=== PATIENT | female | born 1950 | race Caucasian/White ===

== ENCOUNTER 2017-04-18 08:48 | Inpatient (IN) ==
[2017-04-18] MEDS ORDERED: ASPIRIN 325 MG TABLET PO STA (09:31)
[2017-04-18] MEDS ORDERED: SODIUM CHLORIDE 0.9% 500 ML IV STA (09:31)
[2017-04-18 09:40] LABS: Basophils % 0.3 % (0.0-0.8); Hemoglobin 12.9 GM/DL (12.0-16.0); Immature Granulocytes % 0.3 %; Immature Granulocytes Absolute 0.01 #; Lymphocytes # 1.1 10*3/uL (1.4-4.0); Lymphocytes % 29.9 % (21.3-54.2); Mean Corpuscular HGB Conc 34.9 GM/DL (32-36); Mean Corpuscular Hemoglobin 33 PG (27-34); Mean Corpuscular Volume 93.7 FL (87-102); Mean Platelet Volume 9.6 FL (9.6-12.0); Monocytes # 0.3 10*3/uL (0.11-0.8); Monocytes % 7.6 % (1.7-12.7); Neutrophils # 2.2 10*3/uL (1.4-7.4); Neutrophils % 61.9 % (38.7-73.9); Platelet Count 159 T/CUMM (130-400); Red Blood Count 3.95 MC/CUMM (3.8-5.5); Red Cell Distribution Width 12.3 % (9.3-17.3); White Blood Count 3.6 T/CUMM (4-12)
[2017-04-18] MEDS ORDERED: ASPIRIN 325 MG TABLET ONE (09:42)
[2017-04-18 09:44] LABS: PT Patient Result 10.6 SECS; Partial Thromboplastin Time 26.7 SECS (0-40)
--- NOTE | 2017-04-18 09:53 | EKG Report ---
Stationary ECG Study [facility] ER Test Date: 04/18/2017 9:49:44 AM Pat Name: NOY QUILES Department: Room: Gender: F Pollution Control Engineer: : 1950 Requested by: Zen Leung Order Number: [id number] Reading MD: JENNIFER TRAMMELL Intervals [place] Rate: P: 999 ME: 0 QRS: 0 QRSD: 0 T: 0 QT: 0 QTc: 0 Interpretive Statements NORMAL SINUS RHYTHM LOW VOLTAGE POSSiBLE OLD INFERIOR VT Electronically Signed On 04-18-17 17:55:04 CDT by JENNIFER TRAMMELL [email or web address]
[2017-04-18 09:56] LABS: Apearance,Urine CLEAR (Clear); Bacteria,Urine Occasional /HPF (Few); Bilirubin,Urine Negative (Negative); Blood, Urine Negative (Negative); Glucose,Urine (UA) Negative (Negative); Ketones,Urine Negative (Negative); Mucus,Urine Occasional /LPF (Occasional); Nitrite,Urine Negative (Negative); Protein,Urine Negative; Squamous Epithelial Cell,Urine Occasional /HPF (0-10); Urine Color Colorless (Yellow); Urine Specific Gravity 1.001 (1.001-1.035); Urine Urobilinogen < 2.0 EU/DL (0.2-1.0); WBC,Urine 2 /HPF (0-6)
[2017-04-18 10:04] LABS: Barbiturates Screen,Urine Negative (Negative); Benzodiazepines Screen,Urine Negative (Negative); Cannabinoid Screen,Urine Negative (Negative); Opiate Screen,Urine Negative (Negative); Phencyclidine Screen,Urine Negative (Negative)
--- NOTE | 2017-04-18 10:07 | CT Report ---
CT head/brain wo con Indication: Hemiparesis Comparison: None Technique: Multiple axial tomographic images of the brain were obtained without the use of intravenous contrast. Findings: Midline structures are nondisplaced. Mild global volume loss present. Mild periventricular and subcortical hypoattenuation noted which is nonspecific but consistent with chronic microvascular ischemic change. Demyelinating process and vasculitis less likely considerations. There is no evidence of acute intracranial hemorrhage or hydrocephalus. The visualized paranasal sinuses and bilateral mastoid air cells are essentially clear. IMPRESSION: No acute intracranial abnormality demonstrated. The CT exam was performed using one or more of the following dose reduction techniques: Automated exposure control, adjustment of the mA and/or kV according to patient size, or use of iterative reconstruction technique. PROCEDURE INTERPRETED AT [facility] DEPARTMENT OF RADIOLOGY Final Report Signed by: Dr Yaakov Lyon
--- NOTE | 2017-04-18 10:07 | Emergency Department Note ---
Peri Dowling Rolonda, am scribing for, and in the presence of, Zen Barrientos MD 09:50. Floyd Dowling Charles R, MD, personally performed the services described in this documentation, ascribed by Jatinder Whitt in my presence, and it is both accurate and complete . Arrival - Arrival Chief Complaint: Neuro Stated Complaint: Confusion ED Nursing Triage Note: Difficulty concentrating and slurred speech when she woke up this am that has resolved - pt is awake and alert at time of triage - EMS states that her slurred speech was resolved upon their arrival - pt states that she has been under alot of family stress Mode of Arrival: Stretcher - History of Present Illness HPI Narrative: Pt is a 67 y/o female who was brought to the ED via EMS for further evaluation of AMS with an onset of this morning. Pt states that she could not "get her words out" but at time of triage nurses reported pt was awake and alert. states that EMS called him this morning stating that pt had slurred speech and confusion but once he arrived to ED she was fine, stated that sxs lasted 00:30 minutes. Pt stated that she fell last week but denies hitting her head. Pt states that her head "feels heavy" and that she is under a alot of stress due to family issues. She denies weakness, Hx of TIA, dizziness and chest pain but confirms taking ASA everyday. No other complaint/pain in ED. Onset (ago): hour(s) Consistency: constant Severity: moderate Severity scale (1-10): 4 Date of Last Menstrual Period: shawn Allergies/Adverse Reactions: Allergies Allergy/AdvReac Type Severity Reaction Status Date / Time Sulfa (Sulfonamide Allergy RASH Verified 04/18/17 08:52 Antibiotics) Medical,Surgical,& Family Hx - Medical History Psychological: History of: Depression Endocrine: History of: Dyslipidemia - Social History Smoking Status: Never smoker Frequency of Alcohol Use: None Type of Drug Use: None Exam Vital Signs: Vital Signs Temperature 98.9 F 04/18/17 09:00 Pulse Rate 86 04/18/17 09:00 Respiratory Rate 20 04/18/17 09:00 Blood Pressure 109/73 04/18/17 09:00 O2 Sat by Pulse Oximetry 95 04/18/17 09:00 - General General appearance: alert, in no apparent distress - Head Head exam: Present: atraumatic, normocephalic - Eye Eye exam: Present: normal appearance, PERRL, EOMI - ENT ENT exam: Present: mucous membranes moist. Absent: mucous membranes dry - Neck Neck exam: Present: full ROM. Absent: tenderness - Chest Chest inspection: Present: symmetric chest wall rise. Absent: tenderness - Respiratory Respiratory exam: Present: normal lung sounds bilaterally. Absent: rales - Cardiovascular Cardiovascular exam: Present: murmur (3/6 sub ) - Abdominal Exam Abdominal exam: Present: soft, normal bowel sounds. Absent: tenderness - Extremities Exam Extremities exam: Present: full ROM. Absent: tenderness - Back Exam Back exam: Present: full ROM. Absent: tenderness - Neurological Exam Neurological exam: Present: alert, oriented X3, CN II-XII intact - Psychiatric Psychiatric exam: Present: normal affect, normal mood - Skin Skin exam: Present: warm, dry, intact, normal color. Absent: rash Course - Reevaluation(s) Reevaluation #1: Patient is back to her baseline mental status no neurological deficits patient no acute distress Time: : - Consultations Consultation #1: Hospitalist will admit patient Time: 10:27 Results - Labs CBC & BMP: 04/18/17 09:01 04/18/17 09:01 Lab Results: I have reviewed the patients labs Labs: Laboratory Tests 04/18/17 04/18/17 04/18/17 09:01 09:01 09:05 WBC 3.6 L RBC 3.95 Hgb 12.9 Hct 37.0 Plt Count 159 Lymph # (Auto) 1.1 L INR 1.0 PT Patient/Control Mix 10.6 Circ Anticoag PTT 26.7 Urine pH 7.0 Ur Specific Sanders 1.001 Urine Protein Negative Urine Glucose (UA) Negative Urine Ketones Negative Urine Blood Negative Urine Nitrate Negative Urine Bilirubin Negative Urine Urobilinogen < 2.0 H Urine Leukocytes Trace Urine WBC 2 Ur Squamous Epith Cells Occasional Urine Bacteria Occasional Urine Mucus Occasional Ur Culture Indicated? Not indicated Laboratory Tests 04/18/17 09:01 Sodium 143 Potassium 4.1 Chloride 110 H Carbon Dioxide 27 BUN 20 H GFR Calculation 65 BUN/Creatinine Ratio 22.00 H Serum Alcohol < 15 L Disposition Clinical Impression: Transient cerebral ischemia, Expressive aphasia, Confusion, Altered mental status Case discussed with: patient, patient's family Disposition: Still a Patient Condition: Stable Time of Disposition: 10:27 NIH Stroke Score - Stroke Score Initial Assessment Level of Consciousness: Alert Level of Consciousness Questions: Answers Both Correctly Level of Consciousness Commands: Obeys Both Correctly Best Gaze: Normal Visual Longoria: No Visual Loss Facial Palsy: Normal Motor - Right Arm: No Drift Motor - Left Arm: No Drift Motor - Right Leg: No Drift Motor - Left Leg: No Drift Limb Ataxia: Absent Sensory (Pin Prick): Normal Best Language: Normal Dysarthria: Normal Extinction / Inattention (Neglect): No Neglect NIH Stroke Score: 0
[2017-04-18 10:08] LABS: Alanine Aminotransferase 25 U/L (13-56); Alkaline Phosphatase 75 U/L (45-117); Aspartate Amino Transferase 21 U/L (0-37); Blood Urea Nitrogen 20 MG/DL (7-18); Calcium 8.6 MG/DL (8.5-10.1); Glucose 78 MG/DL (74-106); Potassium 4.1 MMOL/L (3.5-5.1); Sodium 143 MMOL/L (136-145); Total Protein 7.1 G/DL (6.4-8.3)
--- NOTE | 2017-04-18 10:26 | XRay Report ---
Exam: XR chest 1V portable Date: 04/18/2017 9:32 AM Indication: Cardiomegaly Comparison: None Technical: AP Findings: ASVD is present. Heart is normal in size. No obvious infiltrate or effusion. Mediastinum and bony structures are otherwise intact. External cardiac leads are present. Impression: 1. ASVD without acute cardiopulmonary pathology PROCEDURE INTERPRETED AT [facility] DEPARTMENT OF RADIOLOGY Final Report Signed by: Dr. Reggie Sweet
[2017-04-18] MEDS ORDERED: ACETAMINOPHEN 325 MG TABLET PO PRN (11:03)
[2017-04-18] MEDS ORDERED: guaiFENesin/DM ER 600-30 MG TABLET PO PRN (11:03)
[2017-04-18] MEDS ORDERED: diphenhydrAMINE CAP 25 MG CAPSULE PO PRN (11:03)
[2017-04-18] MEDS ORDERED: BISACODYL 5 MG TABLET PO PRN (11:03)
[2017-04-18] MEDS ORDERED: SODIUM CHLORIDE 0.9% 1,000 ML IV SCH (11:30)
[2017-04-18] MEDS ORDERED: ENOXAPARIN 40 MG/0.4 ML SYRINGE SUBCUT SCH (11:30)
--- NOTE | 2017-04-18 11:34 | Hospitalist History & Physical ---
Assessment and Plan - Time spent with patient Time spent with patient: Greater than 30 minutes (1) Expressive aphasia Status: Acute Assessment and plan: 04/18/17 - patient presented to the ER with slurred speech and unability to get her words out. She is speaking more clearly at time of evaluation; slight left side facial droop noted. Will admit, get labs, cbc, cmp, lipids, echo, carotids , A1c, MRI, MRA, place on Plavix, lovenox, swallow evaluation. Consult Dr Agosto. Current Visit: Yes (2) Transient cerebral ischemia Status: Acute Current Visit: Yes History of Present Illness Chief complaint: slurred speech and weakness History of present illness: Ms. Perry is a 67 year old white female very pleasant in the ED presents for slurred speech starting about 07:30 this morning without any other deficits that she noticed. Medical history of cholesterol and depression. Patient reports the onset at 07:30 this morning prior to arrival. Pertinent positives: left side facial droop slightly and slurred speech; Pertinent negatives: denies weakness; syncope; fever, chills, vision changes, nausea or vomiting. Surgical HX: , tubal ligation, cholecystectomy. At time of ED presentation, patient assessed. LABS: WBC 3.6; H&H 12.9 & 37.0; Platelet 159; Inr 1.0 PT 10.6 PTT 26.7; NA 143; K 4.1; Chloride 110; Carbon dioxide 27; Anion gap 10.1; BUN 20; Creatinine 0.90; glucose 78; Ca 8.6 AST 21; ALT 25; Troponin <0.015; Urine negative; Drug screen Negative. Chest xray - ASVD without acute cardiopulmonary pathology CT head - no acute intracranial abnormality demonstrated. After discussion wiht Dr Barrientos ED physician and Dr Vizcarra agreed to admit patient for further evaluation. Patient is a FULL Code. Allergies Allergy/AdvReac Type Severity Reaction Status Date / Time Sulfa (Sulfonamide Allergy RASH Verified 04/18/17 08:52 Antibiotics) Medical,Surgical,& Family Hx - Medical History Psychological: History of: Depression Endocrine: History of: Dyslipidemia - Surgical History Abdominal Surgeries: Surgical HX of: Cholecystectomy Reproductive Surgeries: Surgical HX of;: Section, Tubal Ligation - Family History Family History: Reports;: Family Hypertension (Father) - Social History Smoking Status: Never smoker Frequency of Alcohol Use: None Type of Drug Use: None Marital Status: Functional capacity: independent ambulation Review of systems: ROS completed and positives and negatives in HPI. Exam - Constitutional Vitals: Period Temp Pulse Resp BP Sys/Mejia Pulse Ox Last 24 Hr 98.9 F-98.9 F 85-86 20-20 109-124/71-73 95-96 General appearance: normal weight - Head Head exam: Present: normal inspection (slight facial droop to left side; speech is clear and answers questions appropriately) - Eye Eye exam: Present: EOMI - Neck Neck exam: Present: normal inspection - Respiratory Respiratory exam: Present: clear to auscultation bilaterally - Cardiovascular Cardiovascular exam: Present: regular rate and rhythm - GI/Abdominal GI/Abdominal exam: Present: normal bowel sounds. Absent: guarding, tenderness, rebound - Extremities Exam Extremities exam: Present: full ROM. Absent: edema - Neurological Exam Neurological exam: Present: alert, oriented X3, CN II-XII intact - Psychiatric Psychiatric exam: Present: normal affect, other (history of depression) - Skin Skin exam: Present: normal color, warm, dry Results - Labs CBC & BMP: 04/18/17 09:01 04/18/17 09:01 Lab Results: I have reviewed the past 24 hour labs Labs: urine - negative - EKG EKG results: interpreted by ERMD - Diagnostic Findings Procedure: Chest x-ray: report reviewed by me, pending (ASVD without acute cardiopulmonary pathology), CT: report reviewed by me (No acute intracranial abnormality demonstrated)
--- NOTE | 2017-04-18 11:50 | Ultrasound Report ---
Exam: US carotid duplex BI Date: 04/18/2017 11:09 AM Indication: TIA Findings: Grayscale color flow analysis and spectral analysis imaging was performed with image stored and captured. Right Flow velocities centimeters per second Common carotid artery: 56 Proximal ICA: 38 Distal ICA: 52 External carotid artery: 58 Vertebral artery: 26 ICA/CCA ratio: 0.9 Measurements in millimeters Distal ICA: 4.7 Left: Flow velocities centimeters per second Common carotid artery: 68 Proximal ICA: 50 Distal ICA: 54 External carotid artery: 53 Vertebral artery: 35 ICA/CCA ratio: 0.8 Measurements in millimeters Distal ICA: 4.6 Minimal atherosclerotic plaque without high-grade stenosis or occlusions or spectral broadening present. Normal color flow Impression: 1. 0-15% stenosis bilaterally Today studies were performed utilizing indirect NASCET criteria The ultrasound images were stored and captured PROCEDURE INTERPRETED AT [facility] DEPARTMENT OF RADIOLOGY Final Report Signed by: Dr. Reggie Sweet
[2017-04-18 11:53] LABS: Risk Ratio 2.97; VLDL CHOLESTEROL 36.8 MG/DL
--- NOTE | 2017-04-18 14:48 | ECHO Report ---
Aliyah Perry Exam Date: 04/18/2017 12:35 Referring Physician: Technologist: Lizbet Cortes Age: 67 Ht (in): 63 Wt (lb): 150 Gender: F Exam Location: [facility] Echo Indications: TIA BP: 130 / 74 HR: 80 Rhythm: Sinus Technical Quality: IMPRESSIONS EF 60 %. Grade I/IV diastolic dysfunction (abnormal relaxation filling pattern), normal to mildly elevated filling pressures. Normal right ventricular size. The right atrium is mildly enlarged. The left atrium is mildly enlarged. Mild mitral valve sclerosis. Trace mitral valve regurgitation. Aortic valve sclerosis. No aortic valve regurgitation. Morphologically normal tricuspid valve. PAP40 mmHg. Trace pulmonary valve regurgitation. No pericardial effusion. Normal size aortic root and proximal ascending aorta. No LV or LA clot seen. MEASUREMENTS (Male / Female) Normal Values 2D ECHO LV Diastolic Diameter PLAX 3.7 cm 4.2 - 5.9 / 3.9 - 5.3 cm LV Systolic Diameter PLAX 2.4 cm LV Fractional Shortening PLAX 36.0 % IVS Diastolic Thickness 1.2 cm 0.6 - 1.0 / 0.6 - 0.9 cm LVPW Diastolic Thickness 1.0 cm 0.6 - 1.0 / 0.6 - 0.9 cm RV Internal Dim ED PLAX 2.5 cm Aortic Root Diameter 2.8 cm LA Systolic Diameter LX 3.6 cm 3.0 - 4.0 / 2.7 - 3.8 cm FINDINGS Left Ventricle EF 60 %. Grade I/IV diastolic dysfunction (abnormal relaxation filling pattern), normal to mildly elevated filling pressures. Right Ventricle Normal right ventricular size. Right Atrium The right atrium is mildly enlarged. Left Atrium The left atrium is mildly enlarged. Mitral Valve Mild mitral valve sclerosis. Trace mitral valve regurgitation. Aortic Valve Aortic valve sclerosis. No aortic valve regurgitation. Tricuspid Valve Mild tricuspid valve regurgitation. Morphologically normal tricuspid valve.PAP40 mmHg. Pulmonic Valve Morphologically normal pulmonic valve. Trace pulmonary valve regurgitation. Pericardium No pericardial effusion. Aorta Normal size aortic root and proximal ascending aorta. Shon Wood (Electronically Signed) Final Date: 18 April 2017 14:47
--- NOTE | 2017-04-18 15:24 | Neurology Consult Note ---
History of Present Illness History of present illness: 57 years old right-handed white lady with past medical history significant for borderline hypertension presented today for the evaluation of slurred speech episode which occurred this morning lasted for few minutes. Patient reported that she knew what she wanted to say but just could not get the words out correctly as well as she was sliding badly. No vision difficulties, swallowing problems, weakness numbness tingling. She was able to get up and walk. No confusion reported either. Never had similar symptoms before. CT of the head is negative. Carotid ultrasound is unremarkable. Lipid profile is borderline abnormal. Patient was taking aspirin at home Home Medications Medication Instructions Recorded Confirmed Type Aspirin 81 mg PO DAILY 04/18/17 04/18/17 History Biotin 1 mg PO DAILY 04/18/17 04/18/17 History Pravastatin [Pravachol] 20 mg PO BEDTIME 04/18/17 04/18/17 History Venlafaxine HCl [Venlafaxine HCl 75 mg PO DAILY 04/18/17 04/18/17 History ER] Allergies Allergy/AdvReac Type Severity Reaction Status Date / Time Sulfa (Sulfonamide Allergy RASH Verified 04/18/17 08:52 Antibiotics) 12 point system: reviewed and no additional remarkable complaints except as stated Medical,Surgical,& Family Hx - Medical History Psychological: History of: Depression Endocrine: History of: Dyslipidemia - Surgical History Abdominal Surgeries: Surgical HX of: Cholecystectomy Reproductive Surgeries: Surgical HX of;: Section, Tubal Ligation - Family History Family History: Reports;: Family Hypertension (Father, brother,and sister), Family Stroke (father) - Social History Smoking Status: Never smoker Frequency of Alcohol Use: None Type of Drug Use: None Exam - Constitutional Vitals: Period Temp Pulse Resp BP Sys/Mejia Pulse Ox Last 24 Hr 97.6 F-98.9 F 76-87 20-20 109-134/71-86 95-100 Exam: GENERAL: Patient is in no acute distress. NECK: Neck is supple. There is no JVD. No carotid bruits present. No thyroid masses. CVS: First and second heart sounds are normal. There is no S3 present. Regular rate and rhythm. RESPIRATORY: Lungs are clear to auscultation without any rales or rhonchi. ABDOMEN: Soft and non-tender. Bowel sounds are present. There is no hepatosplenomegaly. EXT: There is no palpable edema. Peripheral pulses are present. Skin: No rashes Central Nervous system: General: Alert, awake and Oriented x 3 Speech: Fluent Comprehension: Intact and normal Facial expressions: Normal Cranial Nerves: CN1/Olfactory: Normal CN II/ Optic: Normal, Visual Longoria unreliable CN III, and : MYCHAL & EOMI CN V: Normal & intact CN VII: face is symmetric CNVIII: Normal CN XI/X/XI/XII: Intact and Normal Motor: Bulk and Tone is normal. Strength in the right 5/5 Strength in the left 5/5 Sensory: Grossly intact for all the modalities of PP, LT and temp sense Reflexes: 1+ and symmetrical Cerebellar function: Normal finger to nose and heel to redd testing. Toes: Equivocal Gait: Normal heel to heel and toe to toe and tandem walk. Results - Labs CBC & BMP: 04/18/17 09:01 04/18/17 09:01 Assessment and Plan (1) Transient cerebral ischemia Status: Acute Assessment and plan: Agree with Plavix daily. Stop aspirin. Echocardiogram and MRI brain Holter monitor Thank you for the consult Current Visit: Yes
[2017-04-18] MEDS ORDERED: LORazepam 1 MG TABLET PO ONE (15:46)
[2017-04-18] MEDS: CLOPIDOGREL 75 MG TABLET PO SCH (15:53)
--- NOTE | 2017-04-18 16:55 | Magnetic Resonance Report ---
Exam: MR head/brain wo con Date: 04/18/2017 11:09 AM Comparison: CT brain 04/18/2017 Indication: Slurred speech, confusion, alteration of consciousness, TIA Technique:[Multiple acquisitions were obtained including sagittal T1, coronal T2, and axial ADC, diffusion, FLAIR, T2, GRE, and T1 scans without contrast only. Scans were obtained on a 1.5 [place] magnet.] Findings: The ventricles are normal in size with no midline displacement. The pituitary has a normal appearance and the cerebellar tonsils are normal in their location. No acute infarction is identified on the diffusion scans. No evidence of hemorrhage, mass, or extracerebral collection. Cerebral atrophy with FLAIR/T2 hyperintensities. No acute findings in the paranasal sinuses, orbits, temporal bones, or coquille of Sood. Enlarged perivascular spaces are noted which represent a normal variant. Impression: No acute infarction or mass. Cerebral atrophy and microvascular disease. T2 hyperintensities can also be associated with demyelinating disease, vasculitis, migraines, viral illness, etc. PROCEDURE INTERPRETED AT [facility] DEPARTMENT OF RADIOLOGY Final Report Signed by: Dr. Alicia Knapp
[2017-04-18] MEDS ORDERED: ATORVASTATIN 10 MG TABLET PO SCH (21:00)
[2017-04-19 05:34] LABS: Basophils % 0.3 % (0.0-0.8); Hematocrit 33.8 VOL% (35.7-47.0); Hemoglobin 11.8 GM/DL (12.0-16.0); Lymphocytes # 1.6 10*3/uL (1.4-4.0); Lymphocytes % 49.8 % (21.3-54.2); Mean Corpuscular HGB Conc 34.9 GM/DL (32-36); Mean Corpuscular Hemoglobin 33 PG (27-34); Mean Corpuscular Volume 94.7 FL (87-102); Mean Platelet Volume 10.1 FL (9.6-12.0); Monocytes # 0.3 10*3/uL (0.11-0.8); Monocytes % 8.9 % (1.7-12.7); Neutrophils # 1.3 10*3/uL (1.4-7.4); Platelet Count 168 T/CUMM (130-400); Red Blood Count 3.57 MC/CUMM (3.8-5.5); Red Cell Distribution Width 12.3 % (9.3-17.3); White Blood Count 3.2 T/CUMM (4-12)
[2017-04-19 05:57] LABS: Hypochromasia 1+; Platelet Estimate Normal
[2017-04-19 06:03] LABS: Albumin 3.4 G/DL (3.4-5.0); Bilirubin,Total 0.5 MG/DL (0.2-1.0); Calcium 7.7 MG/DL (8.5-10.1); Osmolality,Calculated 287.7 MOS/KG (273-304); Potassium 4.1 MMOL/L (3.5-5.1); Total Protein 6.2 G/DL (6.4-8.3)
[2017-04-19 06:35] LABS: Risk Ratio 3.22; VLDL CHOLESTEROL 34.6 MG/DL
--- NOTE | 2017-04-19 07:37 | EKG Report ---
Stationary ECG Study [facility] Test Date: 04/19/2017 7:37:13 AM Pat Name: NOY QUILES Department: Room: 424 Gender: F Cs Associate: ZEV : 1950 Requested by: Lila Perera Order Number: [id number] Reading MD: CARLY PELAYO Intervals [place] Rate: 73 P: 45 [place]: 162 QRS: -21 QRSD: 85 T: 62 QT: 402 QTc: 428 Interpretive Statements SINUS RHYTHM LEFT AXIS DEVIATION LOW QRS VOLTAGE IN PRECORDIAL LEADS Electronically Signed On 04-19-17 15:54:26 CDT by CARLY PELAYO [email or web address]
--- NOTE | 2017-04-19 08:32 | Discharge Summary ---
Hospital Course - Hospital Course Hospital Course: Mrs Perry presented with TIA. Her symptoms of slurred speech and left face droop resolved. Her daughter agreed that she was back to her baseline. Her MRI brain and carotid US were normal. Her cardiac echo showed EF of 60% adn grade 1 diastolic dysfunction without clot or other source of emboli. Dr Agosto has seen her. She had a TIA. Her asa was stopped and she was started on Plavix. She will continue pravastatin. She will see Dr Agosto in 4 weeks, and also see Dr Vila her PCP. - Time spent with patient Time with patient DS: Greater than 30 minutes (36 minutes were spent in exam, discharge planning, medicine reconciliation, discharge planning.) Diagnosis - Discharge Diagnosis (1) Transient cerebral ischemia Status: Resolved (2) Hypercholesteremia Status: Chronic Specialty Discharge - Follow Up or Referrals Follow up with: Kenneth Agosto MD [Physician] - 05/17/17 11:00 am Cesar Vila DO [Physician] - 1 Week Discharge Plan - Discharge Data Disposition: Disch To Home/Self Care Condition at Discharge: Stable Discharge Diet: heart healthy Activity: resume usual activities as tolerated - Discharge Medications New Clopidogrel [Plavix] 75 mg PO DAILY #30 tablet Continue Pravastatin [Pravachol] 20 mg PO BEDTIME Biotin 1 mg PO DAILY Venlafaxine HCl [Venlafaxine HCl ER] 75 mg PO DAILY Discontinued Aspirin 81 mg PO DAILY - Follow Up or Referral Follow Up: Kenneth Agosto MD [Physician] - 05/17/17 11:00 am Cesar Vila DO [Physician] - 1 Week - Forms/Instructions Instructions: Transient Ischemic Attack (GEN) Exam - Constitutional Vitals: Period Temp Pulse Resp BP Sys/Mejia Pulse Ox Last 24 Hr 97.0 F-99 F 73-87 18-20 103-140/57-86 94-100 General appearance: normal weight, no acute distress - Head Head exam: Present: normocephalic, atraumatic - Eye Eye exam: Present: EOMI. Absent: scleral icterus - Respiratory Respiratory exam: Present: clear to auscultation bilaterally - Cardiovascular Cardiovascular exam: Present: regular rate and rhythm - GI/Abdominal GI/Abdominal exam: Present: normal bowel sounds, soft. Absent: tenderness - Extremities Exam Extremities exam: Absent: edema Discharge Results Procedures and tests throughout hospitalization: Pending Orders 04/18/17 09:05 Blood Culture Stat Labs on day of discharge: Labs from last 24 hours 04/19/17 04/19/17 04/19/17 04:22 04:22 04:22 WBC 3.2 L RBC 3.57 L Hgb 11.8 L Hct 33.8 L MCV 94.7 MCH 33 MCHC 34.9 RDW 12.3 Plt Count 168 MPV 10.1 Neut % (Auto) 41.0 Lymph % (Auto) 49.8 Dale % (Auto) 8.9 Eos % (Auto) 0.0 Baso % (Auto) 0.3 Neut # (Auto) 1.3 L Lymph # (Auto) 1.6 Dale # (Auto) 0.3 Eos # (Auto) 0.0 Baso # (Auto) 0.0 Immature Gran % 0.0 Nucleated RBC % 0.0 Immature Gran # 0.00 Nucleated RBCs # 0.00 Platelet Estimate Normal Hypochromasia 1+ Morphology Comment INR PT Patient/Control Mix Circ Anticoag PTT Sodium 145 Potassium 4.1 Chloride 113 H Carbon Dioxide 25 Anion Gap 11.1 BUN 16 Creatinine 0.70 GFR Calculation 89 BUN/Creatinine Ratio 22.00 H Glucose 79 Hemoglobin A1c Calculated Osmolality 287.7 Calcium 7.7 L Total Bilirubin 0.50 AST 19 ALT 21 Alkaline Phosphatase 59 Troponin I Total Protein 6.2 L Albumin 3.4 Globulin 2.8 Albumin/Globulin Ratio 1.2 Triglycerides 173 H Cholesterol 174 LDL Cholesterol 90.0 VLDL Cholesterol 34.6 HDL Cholesterol 54 Heart Disease Risk Ratio 3.22 Urine Color Urine Appearance Urine pH Ur Specific [place] Urine Protein Urine Glucose (UA) Urine Ketones Urine Blood Urine Nitrate Urine Bilirubin Urine Urobilinogen Urine Leukocytes Urine WBC Ur Squamous Epith Cells Urine Bacteria Urine Mucus Ur Culture Indicated? Urine Opiates Screen Ur Barbiturates Screen Ur Phencyclidine Scrn U Amphetamine/Methamph U Benzodiazepines Scrn U Cocaine Metab Screen U Cannabinoids Screen Serum Alcohol 04/18/17 04/18/17 04/18/17 Unknown 09:05 09:05 WBC RBC Hgb Hct MCV MCH MCHC RDW Plt Count MPV Neut % (Auto) Lymph % (Auto) Dale % (Auto) Eos % (Auto) Baso % (Auto) Neut # (Auto) Lymph # (Auto) Dale # (Auto) Eos # (Auto) Baso # (Auto) Immature Gran % Nucleated RBC % Immature Gran # Nucleated RBCs # Platelet Estimate Hypochromasia Morphology Comment INR PT Patient/Control Mix Circ Anticoag PTT Sodium Potassium Chloride Carbon Dioxide Anion Gap BUN Creatinine GFR Calculation BUN/Creatinine Ratio Glucose Hemoglobin A1c Calculated Osmolality Calcium Total Bilirubin AST ALT Alkaline Phosphatase Troponin I Total Protein Albumin Globulin Albumin/Globulin Ratio Triglycerides 184 H Cholesterol 202 H LDL Cholesterol 102.0 VLDL Cholesterol 36.8 HDL Cholesterol 68 H Heart Disease Risk Ratio 2.97 Urine Color Colorless Urine Appearance Clear Urine pH 7.0 Ur Specific [place] 1.001 Urine Protein Negative Urine Glucose (UA) Negative Urine Ketones Negative Urine Blood Negative Urine Nitrate Negative Urine Bilirubin Negative Urine Urobilinogen < 2.0 H Urine Leukocytes Trace Urine WBC 2 Ur Squamous Epith Cells Occasional Urine Bacteria Occasional Urine Mucus Occasional Ur Culture Indicated? Not indicated Urine Opiates Screen Negative Ur Barbiturates Screen Negative Ur Phencyclidine Scrn Negative U Amphetamine/Methamph Negative U Benzodiazepines Scrn Negative U Cocaine Metab Screen Negative U Cannabinoids Screen Negative Serum Alcohol 04/18/17 04/18/17 04/18/17 09:01 09:01 09:01 WBC RBC Hgb Hct MCV MCH MCHC RDW Plt Count MPV Neut % (Auto) Lymph % (Auto) Dale % (Auto) Eos % (Auto) Baso % (Auto) Neut # (Auto) Lymph # (Auto) Dale # (Auto) Eos # (Auto) Baso # (Auto) Immature Gran % Nucleated RBC % Immature Gran # Nucleated RBCs # Platelet Estimate Hypochromasia Morphology Comment INR PT Patient/Control Mix Circ Anticoag PTT Sodium 143 Potassium 4.1 Chloride 110 H Carbon Dioxide 27 Anion Gap 10.1 BUN 20 H Creatinine 0.90 GFR Calculation 65 BUN/Creatinine Ratio 22.00 H Glucose 78 Hemoglobin A1c 5.8 Calculated Osmolality 286.0 Calcium 8.6 Total Bilirubin 0.40 AST 21 ALT 25 Alkaline Phosphatase 75 Troponin I < 0.015 Total Protein 7.1 Albumin 4.0 Globulin 3.1 Albumin/Globulin Ratio 1.2 Triglycerides Cholesterol LDL Cholesterol VLDL Cholesterol HDL Cholesterol Heart Disease Risk Ratio Urine Color Urine Appearance Urine pH Ur Specific [place] Urine Protein Urine Glucose (UA) Urine Ketones Urine Blood Urine Nitrate Urine Bilirubin Urine Urobilinogen Urine Leukocytes Urine WBC Ur Squamous Epith Cells Urine Bacteria Urine Mucus Ur Culture Indicated? Urine Opiates Screen Ur Barbiturates Screen Ur Phencyclidine Scrn U Amphetamine/Methamph U Benzodiazepines Scrn U Cocaine Metab Screen U Cannabinoids Screen Serum Alcohol < 15 L 04/18/17 04/18/17 09:01 09:01 WBC 3.6 L RBC 3.95 Hgb 12.9 Hct 37.0 MCV 93.7 MCH 33 MCHC 34.9 RDW 12.3 Plt Count 159 MPV 9.6 Neut % (Auto) 61.9 Lymph % (Auto) 29.9 Dale % (Auto) 7.6 Eos % (Auto) 0.0 Baso % (Auto) 0.3 Neut # (Auto) 2.2 Lymph # (Auto) 1.1 L [place] # (Auto) 0.3 Eos # (Auto) 0.0 Baso # (Auto) 0.0 Immature Gran % 0.3 Nucleated RBC % 0.0 Immature Gran # 0.01 Nucleated RBCs # 0.00 Platelet Estimate Hypochromasia Morphology Comment INR 1.0 PT Patient/Control Mix 10.6 Circ Anticoag PTT 26.7 Sodium Potassium Chloride Carbon Dioxide Anion Gap BUN Creatinine GFR Calculation BUN/Creatinine Ratio Glucose Hemoglobin A1c Calculated Osmolality Calcium Total Bilirubin AST ALT Alkaline Phosphatase Troponin I Total Protein Albumin Globulin Albumin/Globulin Ratio Triglycerides Cholesterol LDL Cholesterol VLDL Cholesterol HDL Cholesterol Heart Disease Risk Ratio Urine Color Urine Appearance Urine pH Ur Specific [place] Urine Protein Urine Glucose (UA) Urine Ketones Urine Blood Urine Nitrate Urine Bilirubin Urine Urobilinogen Urine Leukocytes Urine WBC Ur Squamous Epith Cells Urine Bacteria Urine Mucus Ur Culture Indicated? Urine Opiates Screen Ur Barbiturates Screen Ur Phencyclidine Scrn U Amphetamine/Methamph U Benzodiazepines Scrn U Cocaine Metab Screen U Cannabinoids Screen Serum Alcohol DS: Provider Date of admission: 04/18/17 10:36 Primary care physician: . No PCP Attending physician on admission: Stephy Vizcarra MD Consults: 04/18/17 12:07 Consult to Physician [CONS] Routine Comment: Consulting Provider: Kenneth Agosto Consulting Provider Notified: Yes When should Consulting Provider be notified: Now Consult to Specialist Group: Neurology When should Consulting Provider be notified: Now Person Notified: JAIRO Date Notified: 04/18/17 Time Notified: 13:09 Discharging clinician: Stephy Vizcarra MD
--- NOTE | 2017-04-19 08:44 | Neurology Progress Note ---
Neurology - PN : Subjective Interval history: Patient seems to be doing okay. No new problems reported. Feeling better. MRI of the brain and carotid ultrasound are all within normal limits Exam (Progress Note) - Constitutional Vitals: Period Temp Pulse Resp BP Sys/Mejia Pulse Ox Last 24 Hr 97.0 F-99 F 73-87 18-20 103-140/57-86 94-100 Exam: GENERAL: Patient is in no acute distress. NECK: Neck is supple. There is no JVD. No carotid bruits present. No thyroid masses. CVS: First and second heart sounds are normal. There is no S3 present. Regular rate and rhythm. RESPIRATORY: Lungs are clear to auscultation without any rales or rhonchi. ABDOMEN: Soft and non-tender. Bowel sounds are present. There is no hepatosplenomegaly. EXT: There is no palpable edema. Peripheral pulses are present. Skin: No rashes Central Nervous system: General: Alert, awake and Oriented x 3 Speech: Fluent Comprehension: Intact and normal Facial expressions: Normal Cranial Nerves: CN1/Olfactory: Normal CN II/ Optic: Normal, Visual [place] unreliable CN III, and : MYCHAL & EOMI CN V: Normal & intact CN VII: face is symmetric CNVIII: Normal CN XI/X/XI/XII: Intact and Normal Motor: Bulk and Tone is normal. Strength in the right 5/5 Strength in the left 5/5 Sensory: Grossly intact for all the modalities of PP, LT and temp sense Reflexes: 1+ and symmetrical Cerebellar function: Normal finger to nose and heel to redd testing. Toes: Equivocal Gait: Normal heel to heel and toe to toe and tandem walk. Results - Labs CBC & BMP: 04/19/17 04:22 04/19/17 04:22 Assessment and Plan (1) Transient cerebral ischemia Status: Acute Assessment and plan: Continue Plavix and Lipitor. No further intervention. Okay to go home from neuro standpoint Follow-up in 4 weeks Current Visit: Yes Specialty Discharge - Follow Up or Referrals Follow up with: Kenneth Agosto MD [Physician] - 1 Month Cesar Vila DO [Physician] - 1 Week
[2017-04-19] MEDS ORDERED: ASPIRIN EC 325 MG TABLET PO SCH (09:00)
[2017-04-19] MEDS ORDERED: PANTOPRAZOLE 40 MG TABLET PO SCH (09:00)
[2017-04-19] MEDS: CLOPIDOGREL 75 MG TABLET PO SCH (09:25)
[2017-04-19 10:09] VITALS: BP 108/56
== END 2017-04-19 10:20 | disposition home or self-care (01) | DRG 69 ==
LOC: EDBD → EDUNIT# → N.ED 08:48 → N.EDINP 10:36 → N.4E 12:36
PROVIDERS: ADMIT Internal Medicine; ATTEND Internal Medicine